=== PATIENT | male | born 1995 | race African-American/Black ===

== ENCOUNTER 2017-02-26 22:50 | Emergency (ER) | payer MEDICAID ==
[~2017-02-26] VITALS: Ht 180.3 cm; Wt 78.9 kg
[~2017-02-26 22:50] MED LIST: CLARITIN10 MG PO; KEPPRA250 MG PO; NASONEX0.05 MG/Ac NS; QVAR0.04 MG/Ac IH; SINGULAIR10 MG PO; XOPENEX1.25 MG/3 IH
[2017-02-26 22:54] VITALS: BP 119/61
--- NOTE | 2017-02-26 23:46 | NUR ---
PT TAKEN TO CT FROM [facility]
--- NOTE | 2017-02-26 23:59 | NUR ---
PT RETURN FROM CT TO LOBBY
--- NOTE | 2017-02-27 00:47 | NUR ---
PT TAKEN TO BED 7
--- NOTE | 2017-02-27 00:48 | NUR ---
21 Y/O M W/C/O R MIDDLE ABD PAIN X 5 DAYS. PT DENIES ANY N/V/D, FEVER OR CHILLS. NO S/S OF DISTRESS NOTED AT THE MOMENT. ER MADE AWARE.
--- NOTE | 2017-02-27 01:22 | NUR ---
Dr. Pacheco evaluating patient at bedside.
[2017-02-27 01:35] VITALS: BP 116/67
--- NOTE | 2017-02-27 01:35 | NUR ---
Patient discharged with v/s stable. Written and verbal after care instructions given and explained. Patient alert, oriented and verbalized understanding of instructions. Ambulatory with steady gait. All questions addressed prior to discharge. ID band removed. Patient advised to follow up with PMD OR RETURN TO ER IF CONDITION WORSENS. Rx of MIRALAX AND MAGNESIUM CITRATE given. Patient educated on indication of medication including possible reaction and side effects. Opportunity to ask questions provided and answered.
== END 2017-02-27 01:35 | disposition home or self-care (01) ==
LOC: MED 22:50
DX: K59.00 Constipation, unspecified (principal); J45.909 Unspecified asthma, uncomplicated; Z79.899 Other long term (current) drug therapy

== ENCOUNTER 2018-03-23 13:55 | Emergency (ER) | payer MEDICAID ==
[~2018-03-23] VITALS: Ht 182.9 cm; Wt 83.9 kg
[~2018-03-23 13:55] MED LIST changes: -CLARITIN10 MG PO; -KEPPRA250 MG PO; +LEVA1.2524 IH; +LEVE250T2 PO; +LORA10TA19 PO; +MEDR150S20 IH; +MOME0.051 NS; +MONT10TA35 PO; -NASONEX0.05 MG/Ac NS; -QVAR0.04 MG/Ac IH; -SINGULAIR10 MG PO; -XOPENEX1.25 MG/3 IH
[2018-03-23 14:00] VITALS: BP 141/68
[2018-03-23 14:32] VITALS: BP 102/46
== END 2018-03-23 14:32 | disposition home or self-care (01) ==
LOC: MED 13:55
DX: R56.9 Unspecified convulsions (principal); J45.909 Unspecified asthma, uncomplicated; Z79.899 Other long term (current) drug therapy; Z88.2 Allergy status to sulfonamides
CPT/HCPCS: 99283

== ENCOUNTER 2018-04-09 19:17 | Emergency (ER) | payer MEDICAID ==
[~2018-04-09] VITALS: Ht 182.9 cm; Wt 81.6 kg
[2018-04-09 19:28] VITALS: BP 117/55
--- NOTE | 2018-04-09 19:38 | NUR ---
PT TAKEN BY WHEELCHAIR TO ER BED 06
--- NOTE | 2018-04-09 19:39 | NUR ---
PATIENT PRESENTS TO ED WITH LEFT ANKLE PAIN. PT STATES HE WAS SKATEBOARDING, FELL, LEFT ANKLE ROLLED; PAIN IS PRECIPITATED BY AMBULATION ONLY. NO PAIN WITH REST. NO REDNESS OR EDEMA NOTED. DENIES N/V/D; SKIN IS PINK/WARM/DRY; AAOX4 WITH EVEN AND STEADY GAIT; LUNGS CLEAR BL; HR EVEN AND REGULAR; PT DENIES ANY FEVER, CP, SOB, OR COUGH AT THIS TIME; PATIENT STATES PAIN OF 8/10 AT THIS TIME; VSS; PATIENT POSITIONED FOR COMFORT; HOB ELEVATED; BEDRAILS UP X2; BED DOWN. ER MD MADE AWARE OF PT STATUS. CONTINUE TO MONITOR.
--- NOTE | 2018-04-09 19:55 | NUR ---
PT INSTRUCTED ON CRUTCH USE. PROVIDED PT WITH CRUTCHES.
--- NOTE | 2018-04-09 20:00 | NUR ---
RADIOLOGY AT BEDSIDE
[2018-04-09] MEDS: IBUPROFEN 600 MG TAB PO ONE ×2 (20:48→20:49)
[2018-04-09] MEDS ORDERED: IBUPROFEN CHILDRENS 100 MG/5 ML UDC ONE (21:05)
--- NOTE | 2018-04-09 21:24 | NUR ---
WAITING FOR ER MD DR WALKER DISCHARGE INSTRUCTIONS AND ANY PRESCRIPTIONS.
--- NOTE | 2018-04-09 21:48 | NUR ---
WAITING FOR ER MD DR WALKER DISCHARGE INSTRUCTIONS AND ANY PRESCRIPTIONS.
[2018-04-09 22:02] VITALS: BP 117/55
== END 2018-04-09 22:02 | disposition home or self-care (01) ==
LOC: MED 19:17
DX: S93.402A Sprain of unspecified ligament of left ankle, initial encounter (principal); J45.909 Unspecified asthma, uncomplicated; Z88.2 Allergy status to sulfonamides; V00.131A Fall from skateboard, initial encounter; Y93.21 Activity, ice skating; Y99.8 Other external cause status; Y92.89 Other specified places as the place of occurrence of the external cause
CPT/HCPCS: 73610; 99284; Q0092

== ENCOUNTER 2019-01-25 20:33 | Emergency (ER) | payer MEDICAID ==
[~2019-01-25] VITALS: Ht 182.9 cm; Wt 81.6 kg
[2019-01-25 20:38] VITALS: BP 118/61
--- NOTE | 2019-01-25 20:40 | NUR ---
TO LOBBY A/W BED AMB, WITH MOTHER, SANFORD HORTON NOTED
--- NOTE | 2019-01-25 20:45 | NUR ---
pt abmulated to er bed 09
--- NOTE | 2019-01-25 20:50 | NUR ---
MOTHER STATES PT HAS A NARROW ESOPHAGUS AND CAN ONLY TAKE LIQUID PO MEDS. SIEZURE PAD IN PLACE. SAFETY PRECAUTIONS IN PLACE. PT IN BED; BED IN LOWER LOCKED POSITION. CARIDAC MONITOR ON PT. WILL CONTINUE TO MONITOR.
--- NOTE | 2019-01-25 20:50 | NUR ---
PA AT BEDSIDE FOR EVALUATION.
--- NOTE | 2019-01-25 20:50 | NUR ---
PT BIB MOTHER C/O MEDICAL REFILL. PATIENT STATES LAST TOOK KEPRA ON THURSDAY. PT STATES 05/11 SHARP, FRONTAL LOBE H/A PAIN X4 DAYS. PT AAOX4, ACTING APPROPIRATE TO AGE. DENIES N/V/D, SOB, CP, FEVER OR CHILLS. SKIN WARM, DRY AND INTACT. SPEECH CLEAR, AIRWAY PATENT. HAND SLASHER TENDER STRONG AND EQUAL BL. PMH: SEIZURES, ASMTHA RX: KEPRA
[2019-01-25] MEDS ORDERED: ACETAMINOPHEN 160 MG/5 ML UDC PO ONE (20:55)
[2019-01-25] MEDS ORDERED: levETIRAcetam 100 MG/ML ORASYR PO SCH (20:55)
[2019-01-25] MEDS ORDERED: levETIRAcetam 100 MG/ML ORASYR ONE (21:20)
[2019-01-25 21:54] VITALS: BP 112/71
--- NOTE | 2019-01-25 21:54 | NUR ---
DISCHARGE INSTRUCTIONS PROVIDED. NO SEIZURE ACTIVITY. A&OX4. AFEBRILE. VSS. PT AND MOTHER VERBALIZE UNDERSTANDING OF INSTRUCTIONS. PT TEACHING PROVIDED. ALL QESTIONS ANSWERED.
== END 2019-01-25 21:54 | disposition home or self-care (01) ==
LOC: MED 20:33
DX: G43.909 Migraine, unspecified, not intractable, without status migrainosus (principal); Z76.0 Encounter for issue of repeat prescription; J45.909 Unspecified asthma, uncomplicated; Z79.899 Other long term (current) drug therapy; Z88.2 Allergy status to sulfonamides
CPT/HCPCS: 99283

== ENCOUNTER 2020-11-30 15:29 | Emergency (ER) | payer MEDICAID ==
[~2020-11-30] VITALS: Ht 182.9 cm; Wt 84.4 kg
[2020-11-30 15:31] VITALS: BP 117/44
--- NOTE | 2020-11-30 15:39 | NUR ---
AMBULATED TO BED 6
--- NOTE | 2020-11-30 15:52 | NUR ---
X-Ray at bedside.
--- NOTE | 2020-11-30 15:54 | NUR ---
25 Y/O MALE C/O LEFT SHOULDER PAIN WHEN HE RAISES OR MOVES IT BUT NO PAIN WHEN RESTING. PAIN IS 6/10, BURNING, AND NONRADIATING. YESTERDAY, PT STATED HIS L SHOULDER FELT WEIRD AND HE "POPPED" IT LIKE HE ALWAYS DOES AND IT BEGAN TO HURT/UNABLE TO PERFORM FULL ROM. PT DENIES SOB/N/V. PT A&O X4, REGULAR AND UNLABORED BREATHING. HE AMBULATED TO BED WITH STEADY GAIT. PT LAYING IN BED IN LOWEST POSITION, BRAKES ON, AND ONE SIDE RAIL UP ALLERGIES: SULFA DRUGS, PEANUTS(ANAPHYLAXIS) PMH: EPILEPSY- TAKES KEPRA AND ASTHMA
--- NOTE | 2020-11-30 16:04 | NUR ---
SONI MARTIN AT PT BEDSIDE FOR FURTHER EVALUATION
[2020-11-30] MEDS ORDERED: KETOROLAC 30 MG/ML VIAL IM ONE (16:15)
[2020-11-30 16:27] VITALS: BP 117/44
--- NOTE | 2020-11-30 16:27 | NUR ---
Patient discharged with v/s stable. Written and verbal after care instructions given and explained. Patient alert, oriented and verbalized understanding of instructions. Ambulatory with steady gait. All questions addressed prior to discharge. ID band removed. Patient advised to follow up with PMD. Rx of naproxen 375mg tab BID PO given. Patient educated on indication of medication including possible reaction and side effects. Opportunity to ask questions provided and answered.
== END 2020-11-30 16:27 | disposition home or self-care (01) ==
LOC: MED 15:29
DX: S43.402A Unspecified sprain of left shoulder joint, initial encounter (principal); J45.909 Unspecified asthma, uncomplicated; Z88.2 Allergy status to sulfonamides; Z91.010 Allergy to peanuts; Z79.899 Other long term (current) drug therapy; X50.9XXA Other and unspecified overexertion or strenuous movements or postures, initial encounter; Y93.89 Activity, other specified; Y92.89 Other specified places as the place of occurrence of the external cause; Y99.8 Other external cause status
CPT/HCPCS: 73030; 96372; 99283

== ENCOUNTER 2021-10-19 14:09 | Emergency (ER) | payer MEDICAID ==
[~2021-10-19] VITALS: Ht 185.4 cm; Wt 89.4 kg
[~2021-10-19 14:09] MED LIST changes: -MOME0.051 NS; +[UNRECOGNIZED DRUG - CODE] NS
--- NOTE | 2021-10-19 14:14 | NUR ---
Patient ambulated with steady gait to bed 4.
[2021-10-19 14:15] VITALS: BP 140/92
--- NOTE | 2021-10-19 14:15 | NUR ---
26 y/o M BIB friend c/o throat shrinking x 30-45 mins s/p 1st dose Moderna shot @ 12PM today and drinking [employer] coffee at approximately 12:40PM. Patient A&Ox4, ambulatory, reports symptoms of throat discomfort and chest pain began 30-45 minutes ago. Pt reports deformed esophagus, allergy to nuts and unsure if symptoms of throat shrinking and chest pain is related to Covid vaccination or [employer] drink. Pt states sternal chest pain 6/10, dull/intermittent, non-radiating pain. Denies SOB, dizziness, headache, abdominal pain, fever, chills, nausea, vomiting, diarrhea, dysuria. Lung sounds CTA SpO2 97% on room air. RR even/unlabored. Bed locked in lowest position, side rails x 1. PMH: asthma, epilepsy, arthritis Meds: Keppra, meloxicam, loratadine Allergies: nuts, sulfa
--- NOTE | 2021-10-19 14:30 | NUR ---
Dr. Williamson is evaluating pt at bedside
[2021-10-19] MEDS ORDERED: FAMOTIDINE 20 MG TAB PO ONE (14:45)
--- NOTE | 2021-10-19 14:52 | NUR ---
Mother at bedside
--- NOTE | 2021-10-19 14:55 | NUR ---
Mother states concern about possible allergic reaction to Decadron; reports previous visits at [facility] and [facility] was given cocktail with steroid for allergic reaction that caused patient to have seizures. Dr. Williamson made aware.
--- NOTE | 2021-10-19 15:01 | NUR ---
Dr. Williamson is reevaluating patient at bedside
--- NOTE | 2021-10-19 15:43 | NUR ---
Pt states "My throat feels a little bit better. No more pain in my chest." 0. Mother remains at bedside.
[2021-10-19 16:04] VITALS: BP 117/65
--- NOTE | 2021-10-19 16:28 | NUR ---
Patient resting with both eyes closed. SpO2 96% on room air. RR even/unlabored. Bed locked in lowest position, side rails x 1.
[2021-10-19] MEDS ORDERED: FAMO-90 PO (16:30)
[2021-10-19] MEDS ORDERED: EPIN1KIT31 IM (16:30)
--- NOTE | 2021-10-19 16:45 | NUR ---
Patient discharged with v/s stable. Written and verbal after care instructions given and explained. Patient alert, oriented and verbalized understanding of instructions. Ambulatory with steady gait. All questions addressed prior to discharge. ID band removed. Patient advised to follow up with PMD. Rx of Epipen, Pepcid given. Patient educated on indication of medication including possible reaction and side effects. Opportunity to ask questions provided and answered.
== END 2021-10-19 16:45 | disposition home or self-care (01) ==
LOC: MED 14:09
DX: T78.40XA Allergy, unspecified, initial encounter (principal); J45.909 Unspecified asthma, uncomplicated; Z79.899 Other long term (current) drug therapy; Z88.2 Allergy status to sulfonamides; Z91.018 Allergy to other foods; X58.XXXA Exposure to other specified factors, initial encounter
CPT/HCPCS: 99283; Q0163